=== PATIENT | female | born 1930 | race Caucasian/White ===

== ENCOUNTER 2017-05-25 13:50 | Observation (INO) ==
--- NOTE | 2017-05-25 14:23 | Emergency Department Note ---
Disposition Clinical Impression: Frail elderly, Diabetes, Dehydration, Elevated INR, Atrial fibrillation, Anemia , Diarrhea, Lactic acidosis, Abnormal liver function tests, Thrombocytopenia, Tachycardia Disposition: Admitted As Inpatient Referrals: Veronica Weldon CNP [Primary Care Provider] - Forms: ED Satisfaction Letter General Adult HPI - General Chief complaint: ED Weakness Stated complaint: Weakness Source: patient - History of Present Illness HPI Narrative: 86-year-old female reports emergency department complaining of feeling weak. She had her flu shot about 10 days ago then developed some upper respiratory symptoms and went to her primary care doctor she reports a flu swab was obtained and it was negative. They diagnosed her with a viral illness per the patient. The patient reports she had some skin surgery several days ago, she states she has been feeling weak in general. The patient has had a slight cough but no ear pain runny nose or sore throat reported. She reports she felt "hot" and thinks she may have had a fever. The patient has had no abdominal pain or vomiting but had some diarrhea a few days ago. No blood in her stool. She is anticoagulated and has a history of atrial fibrillation and CAD. There is been no ro chest pain. No leg swelling or pain. She states she takes diuretics but has no history of heart failure. She also reports she is a diabetic with chronic diabetic neuropathy. There is no history of primary lung disease or oxygen requirement. Some shortness of breath is reported. No palpitations or fast heart rate noted or reported. She has had no trouble moving her arms or legs independently. No slurred speech or falls or injuries or bleeding. Pain Scale: 0 - Related Data Home Medications Medication Instructions Recorded Confirmed Alendronate Sodium [Fosamax] 70 mg PO QWEEK 05/25/17 05/25/17 Calcitriol [Rocaltrol] 0.25 mcg PO MOWEFR 05/25/17 05/25/17 Folic Acid 1 mg PO DAILY 05/25/17 05/25/17 Furosemide [Lasix] 40 mg PO DAILY 05/25/17 05/25/17 Gabapentin [Neurontin] 100 mg PO DAILY 05/25/17 05/25/17 GlipiZIDE [Glipizide ER] 10 mg PO DAILY 05/25/17 05/25/17 Ketoconazole 2% CRM [Nizoral Cream] 1 appl TP BID 05/25/17 05/25/17 Lansoprazole [Prevacid] 30 mg PO DAILY 05/25/17 05/25/17 Levothyroxine Sodium [Levo-T] 25 mcg PO DAILY 05/25/17 05/25/17 Losartan Potassium [Cozaar] 100 mg PO DAILY 05/25/17 05/25/17 Metoprolol [Lopressor] 50 mg PO BID 05/25/17 05/25/17 Potassium Chloride [Klor-Con 10] 10 meq PO DAILY 05/25/17 05/25/17 Simvastatin [Zocor] 40 mg PO HS 05/25/17 05/25/17 Sitagliptin Phosphate [Januvia] 50 mg PO DAILY 05/25/17 05/25/17 Allergies Allergy/AdvReac Type Severity Reaction Status Date / Time allopurinol AdvReac Diarrhea Verified 05/25/17 13:55 rivaroxaban [From Xarelto] AdvReac Gastrointestinal Verified 05/25/17 13:55 Upset All systems ED: reviewed and negative except as stated. Past Medical History - Past Medical History Medical history: Reports: cancer, coronary artery disease, diabetes, hyperlipidemia, hypertension Psychiatric history: Reports: no psych history - Social History Smoking Status: Never smoker Alcohol use: Reports: none Drug use: Reports: none Physical Exam - General Limitations: no limitations General appearance: alert, in no apparent distress - Head Head exam: atraumatic, normocephalic, normal inspection - Eye Eye exam: Present: normal appearance, PERRL, EOMI. Absent: scleral icterus, conjunctival injection, miosis, mydriasis - ENT ENT exam: normal exam, normal oropharynx, mucous membranes moist - Neck Neck exam: Present: normal inspection, full ROM, trachea midline - Chest Chest inspection: Present: normal inspection, symmetric chest wall rise. Absent : tenderness - Respiratory Respiratory exam: Present: normal lung sounds bilaterally. Absent: respiratory distress, wheezes, accessory muscle use, prolonged expiratory phase - Cardiovascular Cardiovascular exam: Present: tachycardia, irregular rhythm - Abdominal Exam Abdominal exam: Present: soft, Non-Tender, normal bowel sounds. Absent: tenderness, distention, guarding, rebound, rigidity, pulsatile mass - Extremities Exam Extremities exam: Present: normal inspection, full ROM, normal capillary refill. Absent: tenderness, pedal edema, joint swelling, calf tenderness - Expanded Lower Extremity Exam Neurovascular/Tendon exam: Present: normal capillary refill. Absent: pulse deficit, motor deficit, sensory deficit, tendon deficit, extremity cold to touch , pallor - Back Exam Back exam: Present: normal inspection, full ROM. Absent: tenderness, CVA tenderness (R), CVA tenderness (L), vertebral tenderness - Neurological Exam Neurological exam: Present: alert, oriented X3, CN II-XII intact. Absent: motor sensory deficit - Psychiatric Psychiatric exam: Present: normal affect, normal mood - Skin Skin exam: Present: warm, dry, intact, normal color. Absent: rash, cyanosis, diaphoresis, erythema, pallor, mottled Course Vital Signs Temperature 98.4 F 05/25/17 13:52 Pulse Rate 112 05/25/17 13:52 Respiratory Rate 14 05/25/17 13:52 Blood Pressure 164/66 05/25/17 13:52 O2 Sat by Pulse Oximetry 98 05/25/17 13:52 Temperature 98.4 F 05/25/17 13:52 Pulse Rate 98 05/25/17 16:13 Respiratory Rate 16 05/25/17 16:13 Blood Pressure 133/91 05/25/17 16:13 O2 Sat by Pulse Oximetry 95 05/25/17 16:13 Oxygen Delivery Oxygen Delivery Room Air Medical Decision Making - [facility] Narrative Medical decision making narrative: The patient was seen by her primary care physician about 10 days ago got a flu shot, 3 days later she had upper asperse symptoms was tested for the flu which was negative per her report. The patient is been somewhat weak and feeling poorly, she is diabetic, she reports she started having some diarrhea about 2 days ago. There is no history of bloody stool. The patient is anticoagulated secondary to atrial fibrillation. The patient's laboratory studies suggest an element of dehydration she is slightly tachycardic, her lactic acid is elevated , BUN creatinine also elevated compared to previous. IV fluid was ordered. Urinalysis shows no major infection chest x-ray no acute disease. The patient is slightly anemic. Based on the patient's age, diarrhea, lactic acidosis, tachycardia, likely dehydration, in association with diabetes, I do not be appropriate to admit and observe the patient. She feels very weak and is highly agreeable. I reviewed the case with the hospitalist on-call who has accepted the patient to their care. - Lab Data Result diagrams: 05/25/17 14:30 05/25/17 14:30 Lab Results 05/25/17 05/25/17 05/25/17 Range/Units 14:30 14:30 14:30 WBC 4.9 (4.3-11.1) K/mcL RBC 3.58 L (3.82-4.97) M/mcL Hgb 10.6 L (11.5-15.4) g/dL Hct 31.7 L (35.3-44.9) % MCV 88.5 (83.0-100.0) fL MCH 29.6 (28.0-33.3) pg MCHC 33.4 (31.6-35.5) g/dL RDW 16.1 H (11.5-14.5) % Plt Count 86 L (140-400) K/mcL MPV 13.0 H (9.4-12.4) fL Immature Gran % 0.4 (0-4) % Seg Neutrophils % 69.2 % Lymphocytes % 23.9 % Monocytes % 4.7 % Eosinophils % 0.8 % Basophils % 1.0 % Neutrophils # 3.4 (1.6-8.9) K/mcL Lymphocytes # 1.2 (0.6-4.6) K/mcL Monocytes # 0.2 (0.0-1.3) K/mcL Eosinophils # 0.0 (0.0-0.6) K/mcL Basophils # 0.1 (0.0-0.2) K/mcL Nucleated RBCs/100 WBC 0.4 H (0) /100 WBC Platelet Estimate Slight Decrease L (Normal) Immature Plt Fraction 8.8 H (1.1-6.1) % PT (9.4-12.1) Seconds INR APTT (26.0-36.0) Seconds Sodium 136 (136-145) mEq/L Potassium 4.0 (3.5-4.5) mEq/L Chloride 104 (98-109) mEq/L Carbon Dioxide 21 (19-29) mEq/L BUN 34 H (7-20) mg/dL Creatinine 1.66 H (0.57-1.11) mg/dL Est GFR ( Amer) 36 L (> 60) Est GFR (Non-Af Amer) 29 L (> 60) BUN/Creatinine Ratio 20 (6-26) Glucose 226 H (70-99) mg/dL Calculated Osmolality 297 (280-300) Lactic Acid 3.5 H (0.5-2.2) mmol/L Calcium 8.2 L (8.6-10.8) mg/dL Total Bilirubin 1.6 H (0.2-1.2) mg/dL AST 68 H (5-34) Units/L ALT 51 (0-55) Units/L Alkaline Phosphatase 466 H (38-126) Units/L Troponin I (0-0.03) ng/mL C-Reactive Protein 77 H (Less than 5) mg/L Serum Total Protein 6.3 (6.0-8.3) g/dL Albumin 2.2 L (3.5-5.0) g/dL Globulin 4.1 H (2.4-3.5) g/dL Albumin/Globulin Ratio 0.5 L (1.1-2.2) Urine Color (Yellow) Urine Clarity (Clear) Urine pH (5.0-8.0) pH Units Ur Specific [place] (1.010-1.025) Urine Protein (Neg-Trace) mg/dL Urine Glucose (UA) (Normal) mg/dL Urine Ketones (Negative) mg/dL Urine Blood (Negative) Urine Nitrite (Negative) Urine Bilirubin (Negative) Urine Urobilinogen (Normal) mg/dL Ur Leukocyte Esterase (Negative) Urine Microscopic RBC (0-3) per hpf Urine Microscopic WBC (0-3) per hpf Ur Squamous Epith Cells (None-Few) per lpf Urine Bacteria (None-Few) per hpf Hyaline Casts Ur Culture Indicated? (NO) 05/25/17 05/25/17 05/25/17 Range/Units 14:30 15:04 15:51 WBC (4.3-11.1) K/mcL RBC (3.82-4.97) M/mcL Hgb (11.5-15.4) g/dL Hct (35.3-44.9) % MCV (83.0-100.0) fL MCH (28.0-33.3) pg MCHC (31.6-35.5) g/dL RDW (11.5-14.5) % Plt Count (140-400) K/mcL MPV (9.4-12.4) fL Immature Gran % (0-4) % Seg Neutrophils % % Lymphocytes % % Monocytes % % Eosinophils % % Basophils % % Neutrophils # (1.6-8.9) K/mcL Lymphocytes # (0.6-4.6) K/mcL Monocytes # (0.0-1.3) K/mcL Eosinophils # (0.0-0.6) K/mcL Basophils # (0.0-0.2) K/mcL Nucleated RBCs/100 WBC (0) /100 WBC Platelet Estimate (Normal) Immature Plt Fraction (1.1-6.1) % PT 52.0 H* (9.4-12.1) Seconds INR 4.7 H* APTT 47.2 H (26.0-36.0) Seconds Sodium (136-145) mEq/L Potassium (3.5-4.5) mEq/L Chloride (98-109) mEq/L Carbon Dioxide (19-29) mEq/L BUN (7-20) mg/dL Creatinine (0.57-1.11) mg/dL Est GFR ( Amer) (> 60) Est GFR (Non-Af Amer) (> 60) BUN/Creatinine Ratio (6-26) Glucose (70-99) mg/dL Calculated Osmolality (280-300) Lactic Acid (0.5-2.2) mmol/L Calcium (8.6-10.8) mg/dL Total Bilirubin (0.2-1.2) mg/dL AST (5-34) Units/L ALT (0-55) Units/L Alkaline Phosphatase (38-126) Units/L Troponin I 0.01 (0-0.03) ng/mL C-Reactive Protein (Less than 5) mg/L Serum Total Protein (6.0-8.3) g/dL Albumin (3.5-5.0) g/dL Globulin (2.4-3.5) g/dL Albumin/Globulin Ratio (1.1-2.2) Urine Color Dark Yellow (Yellow) Urine Clarity Cloudy A (Clear) Urine pH 6.0 (5.0-8.0) pH Units Ur Specific [place] 1.020 (1.010-1.025) Urine Protein 30 H (Neg-Trace) mg/dL Urine Glucose (UA) Normal (Normal) mg/dL Urine Ketones Negative (Negative) mg/dL Urine Blood Negative (Negative) Urine Nitrite Negative (Negative) Urine Bilirubin Small H (Negative) Urine Urobilinogen Normal (Normal) mg/dL Ur Leukocyte Esterase Negative (Negative) Urine Microscopic RBC 0-3 (0-3) per hpf Urine Microscopic WBC 3-5 H (0-3) per hpf Ur Squamous Epith Cells Many H (None-Few) per lpf Urine Bacteria Many H (None-Few) per hpf Hyaline Casts Test Not Performed Ur Culture Indicated? NO (NO)
[2017-05-25 14:42] LABS: Hemoglobin 10.6 g/dL (11.5-15.4); Immature Granulocytes % 0.4 % (0-4); Red Cell Distribution Width 16.1 % (11.5-14.5)
[2017-05-25 14:44] LABS: Basophils # 0.1 K/mcL (0.0-0.2); Eosinophils % 0.8 %; Hematocrit 31.7 % (35.3-44.9); Immature Platelets 8.8 % (1.1-6.1); Lymphocytes # 1.2 K/mcL (0.6-4.6); Lymphocytes % 23.9 %; Mean Corpuscular HGB Conc 33.4 g/dL (31.6-35.5); Mean Corpuscular Hemoglobin 29.6 pg (28.0-33.3); Mean Corpuscular Volume 88.5 fL (83.0-100.0); Monocytes # 0.2 K/mcL (0.0-1.3); Monocytes % 4.7 %; Neutrophils # 3.4 K/mcL (1.6-8.9); Nucleated Red Blood Cells 0.4 /100 WBC (0); Red Blood Count 3.58 M/mcL (3.82-4.97); Segmented Neutrophils % 69.2 %
[2017-05-25 14:55] LABS: Albumin 2.2 g/dL (3.5-5.0); Albumin/Globulin Ratio 0.5 (1.1-2.2); Bilirubin,Total 1.6 mg/dL (0.2-1.2); Calcium 8.2 mg/dL (8.6-10.8); Globulin 4.1 g/dL (2.4-3.5); Total Protein 6.3 g/dL (6.0-8.3)
[2017-05-25 15:06] LABS: Platelet Count 86 K/mcL (140-400); Platelet Estimate Slight Decrease (Normal)
[2017-05-25 15:12] LABS: Bilirubin,Urine Small (Negative); Blood,Urine Negative (Negative); Clarity,Urine Cloudy (Clear); Color,Urine Dark Yellow (Yellow); Glucose,Urine (UA) Normal (Normal); Ketones,Urine Negative (Negative); Nitrite,Urine Negative (Negative); Protein,Urine 30 mg/dL (Neg-Trace); Urobilinogen,Urine Normal (Normal)
[2017-05-25 15:56] LABS: Bacteria,Urine Many per hpf (None-Few); Leukocyte Esterase,Urine Negative (Negative); RBC,Urine 0-3 per hpf (0-3); Squamous Epithelial Cell,Urine Many per lpf (None-Few)
[2017-05-25 16:12] LABS: Activated Partial Thrombo Time 47.2 Seconds (26.0-36.0)
[2017-05-25 16:16] LABS: INR 4.7
[2017-05-25] MEDS ORDERED: 0.9 % Sodium Chloride 1,000 ML IVC ONE (16:59)
[2017-05-25] MEDS ORDERED: Dextrose Gel 15 GM PO PRN ×2 (22:06)
[2017-05-25] MEDS ORDERED: *HR* Dextrose 50 % in Water (Syg) 50 ML SYRINGE IVP PRN (22:06)
[2017-05-25] MEDS ORDERED: D5% in Water 1,000 ML IVC PRN (22:06)
[2017-05-25] MEDS ORDERED: Naloxone 0.4 MG/ML INJ IVP PRN (22:06)
[2017-05-25] MEDS ORDERED: 0.9 % Sodium Chloride 1,000 ML IVC SCH (22:15)
--- NOTE | 2017-05-25 22:42 | Internal Med History&Physical ---
<Drake Paula - Last Filed: 05/25/17 22:40> Date of Encounter: 05/25/17 Time of Encounter: 22:40 Assessment and Plan (1) Dehydration Current visit: Yes Status: Acute In the setting of recent viral illness and diarrhea. Elevated lactate 3.5 creatinine 1.66. Currently hemodynamically stable, does not appear severely dehydrated. Stop Lasix Received 1 L fluid bolus continue rehydration with 0.9% normal saline at 100 mL per hour Resume diet and encourage fluid intake recheck BMP in the morning (2) Diarrhea Current visit: Yes Status: Resolved Reports diarrhea approximately 2 days ago. Has resolved this time. Qualifiers: Diarrhea type: unspecified type Qualified Code(s): R19.7 - Diarrhea, unspecified (3) Lactic acidosis Current visit: Yes Status: Acute Likely due to dehydration. Should improve with IV fluids. We will recheck lactic acid now, patient does not appear to be septic (4) Supratherapeutic INR Current visit: Yes Status: Acute Denies any bleeding, H&H stable compared to last visit. Continue to monitor for signs of bleeding. Patient takes coumadin for h/o a-fib. Hold todays dose and restart coumadin with pharmacy to dose. PT/INR in the morning. (5) Hypothyroid Current visit: Yes Status: Acute Continues to endorse weakness and fatigue. She is not sure when she last had her thyroid checked. Recheck TSH in the morning, continue Synthroid Qualifiers: Hypothyroidism type: unspecified Qualified Code(s): E03.9 - Hypothyroidism , unspecified (6) HLD (hyperlipidemia) Current visit: Yes Status: Acute Continue statin Qualifiers: Hyperlipidemia type: unspecified Qualified Code(s): E78.5 - Hyperlipidemia , unspecified (7) HTN (hypertension) Current visit: Yes Status: Acute History of hypertension, currently hemodynamically stable. Continue BB and Jose Angel Qualifiers: Hypertension type: essential hypertension Qualified Code(s): I10 - Essential (primary) hypertension (8) Diabetes Current visit: Yes Status: Acute History of diabetes, takes oral hypoglycemic agents at home. Stop glipizide and Januvia. Start LSSIC withAC/HS Accu-Cheks. Diabetic/cardiac diet Qualifiers: Diabetes mellitus type: type 2 Diabetes mellitus complication status: without complication Diabetes mellitus residential insulin use: without residential use Qualified Code(s): E11.9 - Type 2 diabetes mellitus without complications (9) Anemia Current visit: Yes Status: Acute History of anemia, stable at baseline. Denies any bleeding recheck CBC in the morning Qualifiers: Anemia type: iron deficiency Iron deficiency anemia type: unspecified iron deficiency Qualified Code(s): D50.9 - Iron deficiency anemia, unspecified (10) DVT prophylaxis Current visit: Yes Status: Acute Heparin subcutaneous 5000 units every 12 hours Internal Medicine - H&P: HPI Chief complaint: Weakness, diarrhea 2 days and dehydration. Admitted From: Home Plans for Post Hospital Care: Home History of present illness: Ms. Andrea is a 86 year old female with a PMH of CVA, CAD, DM, HEENT, HTN. [facility] one and half week complaint of weakness. She reports that 3-4 days after receiving her flu shot she began feeling weak report subjective chills and fevers as well as nonproductive cough. At that time she saw her primary care provider or flu swab was obtained and found to be negative she was diagnosed with viral upper respiratory infection. Additionally reports diarrhea X4-6 episodes approximately 2 days ago. Currently denies any fever, chills, chest pain, diarrhea, nausea, vomiting. She had supratherapeutic at 52 and 4.7 and she denies any bleeding. LV creatinine 1.66. Past Med Surg Social Fam HX - Past Medical History Medical history: cancer, coronary artery disease, diabetes, hyperlipidemia, hypertension Psychiatric history: no psych history - Past Surgical History Surgical History: cancer surgery, coronary bypass (CABG) - Social History Smoking Status: Never smoker Smokeless Tobacco Status: No Alcohol use: none Drug use: none - Family History Mother Hx Family Cardiac Disorders: Yes Brother Hx Family Cardiac Disorders: Yes Hx Family Cancer: Yes Sister Hx Family Neurologic Disorders: Yes Internal Medicine - H&P: Meds Alendronate Sodium [Fosamax] 70 mg PO QWEEK 05/25/17 [History] Calcitriol [Rocaltrol] 0.25 mcg PO MOWEFR 05/25/17 [History] Folic Acid 1 mg PO DAILY 05/25/17 [History] Furosemide [Lasix] 40 mg PO DAILY 05/25/17 [History] Gabapentin [Neurontin] 100 mg PO DAILY 05/25/17 [History] GlipiZIDE [Glipizide ER] 10 mg PO DAILY 05/25/17 [History] Ketoconazole 2% CRM [Nizoral Cream] 1 appl TP BID 05/25/17 [History] Lansoprazole [Prevacid] 30 mg PO DAILY 05/25/17 [History] Levothyroxine Sodium [Levo-T] 25 mcg PO DAILY 05/25/17 [History] Losartan Potassium [Cozaar] 100 mg PO DAILY 05/25/17 [History] Metoprolol [Lopressor] 50 mg PO BID 05/25/17 [History] Potassium Chloride [Klor-Con 10] 10 meq PO DAILY 05/25/17 [History] Simvastatin [Zocor] 40 mg PO HS 05/25/17 [History] Sitagliptin Phosphate [Januvia] 50 mg PO DAILY 05/25/17 [History] 3 Allergy/AdvReac Type Severity Reaction Status Date / Time allopurinol AdvReac Diarrhea Verified 05/25/17 13:55 rivaroxaban [From Xarelto] AdvReac Gastrointestinal Verified 05/25/17 13:55 Upset All Systems PM: A 10-system review of systems was performed and is negative for pertinent findings except as documented above in the HPI. - Constitutional Constitutional: as per HPI, weakness, no chills, no fatigue, no fever(s), no lethargy, no weight gain, no weight loss - EENT Eyes: no change in vision, no discharge, no pain, no photophobia - Cardiovascular Cardiovascular ROS IM: no chest pain, no diaphoresis, no dyspnea, no edema, no lightheadedness, no palpitations, no syncope Additional comments: Mild shortness of breath - Respiratory Respiratory: no cough, no dyspnea, no wheezing, no excessive phlegm production - Gastrointestinal Gastrointestinal: as per HPI, diarrhea, no abdominal pain, no hematemesis, no hematochezia, no melena, no nausea, no vomiting - Genitourinary Genitourinary: as per HPI, no change in urinary stream, no dysuria, no flank pain, no hematuria - Musculoskeletal Musculoskeletal ROS IM: no numbness, no tingling - Integumentary Integumentary IM: new lesions, rash, unusual bruising (HEALING BIOPSY SITE Left Wrist) - Neurological Neurological ROS: no confusion, no convulsions, no focal weakness, no numbness, no tingling, no tremor(s) - Constitutional Vitals: Temp Pulse Resp BP Pulse Ox 98.3 F 127 16 140/72 96 05/25/17 20:01 05/25/17 20:01 05/25/17 20:01 05/25/17 20:01 05/25/17 20:01 General appearance: Present: cooperative, A&O X 3, no acute distress, answers questions appropriately - Head Head exam: Present: atraumatic, normocephalic - Eye Eye exam: Present: EOMI, PERRL, conjuntiva pink, sclera anicteric Pupils: Present: PERRL - Neck Neck exam general surgery: Present: supple, trachea midline. Absent: lymphadenopathy - Respiratory Respiratory exam: Present: CTAB. Absent: accessory muscle use, rales, respiratory distress, rhonchi, wheezes - Cardiovascular Cardiovascular exam: Present: RRR, +S1, +S2. Absent: diastolic murmur, gallop, rubs, systolic murmur - GI/Abdominal GI/Abdominal exam: Present: normal bowel sounds, soft, no peritoneal signs. Absent: distended, tenderness - Extremities Exam Extremities exam: Present: warm, radial pulses palpable and symmetrical. Absent : calf tenderness, cyanotic, pedal edema - Neurological Exam Neurological exam: Present: alert, CN II-XII intact, oriented X3, no focal deficits. Absent: pronater drift, facial droop, speech deficit - Skin Skin exam: Present: dry, intact Internal Med - H&P Results - Labs CBC & Chem 7: 05/25/17 14:30 05/25/17 14:30 - Diagnostic Studies Chest x-ray Status: image reviewed by me Additional comments: No acute pulmonary process <Mohit Paul - Last Filed: 05/26/17 04:20> Date of Encounter: 05/26/17 Internal Medicine - H&P: HPI History of present illness: Ms. Andrea is a 86 year old female All Systems PM: A 10-system review of systems was performed and is negative for pertinent findings except as documented above in the HPI. - Constitutional Vitals: Temp Pulse Resp BP Pulse Ox 98.9 F 102 20 132/65 97 05/26/17 03:36 05/26/17 03:36 05/26/17 03:36 05/26/17 03:36 05/26/17 03:36 Internal Med - H&P Results - Labs CBC & Chem 7: 05/25/17 14:30 05/25/17 14:30 - Attending Attestation I saw and examined the patient independently, I have discussed with ACADEMIC GUIDANCE SPECIALIST Mr Danielle regarding the management plan. Agree with the documentation. Patient presented with diarrhea. She was given hydration in ER. When I saw patient, she complained of mild shortness of breath. Will hold IV fluid considering patient has A. fib. We will check GI panel.
[2017-05-25] MEDS: Insulin LISPRO 300 UNITS/3 ML VIAL SQ SCH (23:54)
[2017-05-26] MEDS: Levothyroxine 25 MCG TABLET PO SCH (05:52)
[2017-05-26] MEDS ORDERED: *HR* Heparin 5,000 UNIT/ML VIAL SQ SCH (06:00)
[2017-05-26 06:46] LABS: Red Cell Distribution Width 16.3 % (11.5-14.5)
[2017-05-26 06:47] LABS: Hemoglobin 9.6 g/dL (11.5-15.4); Immature Platelets 6.6 % (1.1-6.1); Mean Corpuscular HGB Conc 33.1 g/dL (31.6-35.5); Mean Corpuscular Hemoglobin 29.4 pg (28.0-33.3); Mean Corpuscular Volume 88.7 fL (83.0-100.0); Mean Platelet Volume 12.1 fL (9.4-12.4); Monocytes # 0.3 K/mcL (0.0-1.3); Red Blood Count 3.27 M/mcL (3.82-4.97)
[2017-05-26 06:49] LABS: INR 4.2; Platelet Count 84 K/mcL (140-400)
[2017-05-26 07:02] LABS: Prothrombin Time 47.2 Seconds (9.4-12.1)
[2017-05-26 07:04] LABS: Calcium 7.5 mg/dL (8.6-10.8); Potassium 4.3 mEq/L (3.5-4.5)
[2017-05-26 07:11] LABS: Basophils # 0.2 K/mcL (0.0-0.2); Eosinophils # 0.1 K/mcL (0.0-0.6); Lymphocytes # 0.6 K/mcL (0.6-4.6); Neutrophils # 3.7 K/mcL (1.6-8.9)
[2017-05-26 07:12] LABS: Platelet Estimate Decreased (Normal)
[2017-05-26 07:20] LABS: Thyroid Stimulating Hormone 1.66 mcIU/mL (0.350-4.840)
[2017-05-26] MEDS: Gabapentin 100 MG CAPSULE PO SCH (08:21)
[2017-05-26] MEDS: Folic Acid 1 MG TABLET PO SCH (08:21)
[2017-05-26] MEDS: Insulin LISPRO 300 UNITS/3 ML VIAL SQ SCH ×4 (08:26→21:04)
--- NOTE | 2017-05-26 14:20 | Internal Med Progress Note ---
Date of Encounter: 05/26/17 Time of Encounter: 10:45 - Assessment and plan (1) Dehydration Current Visit: Yes Status: Acute Assessment and plan: likely from volume loss was due to diarrhea. Improved and lactic acid is normal. (2) Chronic kidney disease, stage III (moderate) Current Visit: Yes Status: Chronic Assessment and plan: creatinine remains at patient's baseline. (3) Anemia Current Visit: Yes Status: Chronic Assessment and plan: Hemoglobin 9.6. Likely dilutional decrease.Will monitor blood counts. Qualifiers: Anemia type: due to chronic kidney disease Chronic kidney disease stage: stage 3 (moderate) Qualified Code(s): N18.3 - Chronic kidney disease, stage 3 (moderate); D63.1 - Anemia in chronic kidney disease; D63.1 - Anemia in chronic kidney disease (4) Diabetes Current Visit: Yes Status: Chronic Assessment and plan: Continue current insulin regimen. Diabetic diet. Monitor blood sugars. Qualifiers: Diabetes mellitus type: type 2 Diabetes mellitus complication status: without complication Diabetes mellitus detention insulin use: without manager intermediate use Qualified Code(s): E11.9 - Type 2 diabetes mellitus without complications (5) Diarrhea Current Visit: Yes Status: Resolved Assessment and plan: this has now resolved. Qualifiers: Diarrhea type: unspecified type Qualified Code(s): R19.7 - Diarrhea, unspecified (6) HLD (hyperlipidemia) Current Visit: Yes Status: Acute Assessment and plan: Continue Zocor Qualifiers: Hyperlipidemia type: mixed hyperlipidemia Qualified Code(s): E78.2 - Mixed hyperlipidemia (7) HTN (hypertension) Current Visit: Yes Status: Chronic Assessment and plan: blood pressure is well controlled Qualifiers: Hypertension type: essential hypertension Qualified Code(s): I10 - Essential (primary) hypertension (8) Hypothyroid Current Visit: Yes Status: Chronic Assessment and plan: continue levothyroxine Qualifiers: Hypothyroidism type: unspecified Qualified Code(s): E03.9 - Hypothyroidism , unspecified (9) Lactic acidosis Current Visit: Yes Status: Resolved (10) Supratherapeutic INR Current Visit: Yes Status: Acute Assessment and plan: INR 4.2 today. Continue holding Coumadin per pharmacy dosing. (11) Atrial fibrillation Current Visit: Yes Status: Chronic Assessment and plan: Heart rate is better controlled at this time. Continue home medications. Anticoagulation with Coumadin. Qualifiers: Atrial fibrillation type: paroxysmal Qualified Code(s): I48.0 - Paroxysmal atrial fibrillation - Subjective Interval history: patient is awake and alert. Lying in bed. Appears comfortable. She has not had any episodes of diarrhea today. No nausea or vomiting either.tolerated breakfast well. - Constitutional Vitals: Temp Pulse Resp BP Pulse Ox 98.7 F 90 18 118/75 95 05/26/17 12:10 05/26/17 12:10 05/26/17 12:10 05/26/17 12:10 05/26/17 12:10 General appearance: Present: cooperative, A&O X 3, no acute distress, answers questions appropriately - Respiratory Respiratory exam: Present: CTAB. Absent: accessory muscle use, rales, rhonchi, wheezes - Cardiovascular Cardiovascular exam: Present: RRR, +S1, +S2. Absent: diastolic murmur, gallop, rubs, systolic murmur - GI/Abdominal GI/Abdominal exam: Present: normal bowel sounds, soft, no peritoneal signs. Absent: distended, tenderness - Extremities Exam Extremities exam: Present: warm, radial pulses palpable and symmetrical. Absent : calf tenderness, cyanotic, pedal edema Internal Medicine: Result - Labs CBC & Chem 7: 05/26/17 06:12 05/26/17 06:12 Labs: Short CBC 05/26/17 Range/Units 06:12 WBC 4.8 (4.3-11.1) K/mcL Hgb 9.6 L (11.5-15.4) g/dL Hct 29.0 L (35.3-44.9) % Plt Count 84 L (140-400) K/mcL Neutrophils # 3.7 (1.6-8.9) K/mcL BMP 05/26/17 06:12 Sodium 139 Potassium 4.3 Chloride 110 H Carbon Dioxide 23 BUN 26 H Creatinine 1.27 H Glucose 123 H Calcium 7.5 L - ABG Interpretation ABG results: PT/INR, D-dimer PT 47.2 Seconds (9.4-12.1) H* 05/26/17 06:12 Consult Discharge Plan - Plan Referrals: Veronica Weldon, [employer] INSPECTOR [Primary Care Provider] -
[2017-05-26] MEDS ORDERED: Warfarin perPT PO PRN (18:00)
[2017-05-26] MEDS ORDERED: Ipratropium/Albuterol Neb 3 ML IH ONE (21:55)
[2017-05-26] MEDS: Bacitracin OINT PKT TP SCH (23:20)
[2017-05-27] MEDS: Levothyroxine 25 MCG TABLET PO SCH (05:57)
[2017-05-27 07:43] LABS: INR 2.7; Prothrombin Time 30.1 Seconds (9.4-12.1)
[2017-05-27] MEDS: Insulin LISPRO 300 UNITS/3 ML VIAL SQ SCH ×2 (09:36→18:18)
[2017-05-27] MEDS: Gabapentin 100 MG CAPSULE PO SCH ×2 (09:39→20:50)
[2017-05-27] MEDS: Folic Acid 1 MG TABLET PO SCH (09:40)
[2017-05-27] MEDS: Bacitracin OINT PKT TP SCH ×3 (09:40→20:42)
[2017-05-27] MEDS: Metoprolol XL (24 HR) Succ 50 MG TAB.ER.24H PO SCH (11:30)
--- NOTE | 2017-05-27 12:13 | Discharge Summary ---
Date of Encounter: 05/27/17 Time of Encounter: 12:11 - Discharge Diagnosis (1) Dehydration Priority: Primary Status: Acute (2) Atrial fibrillation Priority: Secondary Status: Chronic Qualifiers: Atrial fibrillation type: paroxysmal Qualified Code(s): I48.0 - Paroxysmal atrial fibrillation (3) Chronic kidney disease, stage III (moderate) Priority: Secondary Status: Chronic (4) Anemia Priority: Secondary Status: Chronic Qualifiers: Anemia type: due to chronic kidney disease Chronic kidney disease stage: stage 3 (moderate) Qualified Code(s): N18.3 - Chronic kidney disease, stage 3 (moderate); D63.1 - Anemia in chronic kidney disease; D63.1 - Anemia in chronic kidney disease (5) Diabetes Priority: Secondary Status: Chronic Qualifiers: Diabetes mellitus type: type 2 Diabetes mellitus complication status: without complication Diabetes mellitus correction insulin use: without watermaster use Qualified Code(s): E11.9 - Type 2 diabetes mellitus without complications (6) Diarrhea Priority: Secondary Status: Resolved Qualifiers: Diarrhea type: unspecified type Qualified Code(s): R19.7 - Diarrhea, unspecified (7) HLD (hyperlipidemia) Priority: Secondary Status: Acute Qualifiers: Hyperlipidemia type: mixed hyperlipidemia Qualified Code(s): E78.2 - Mixed hyperlipidemia (8) HTN (hypertension) Priority: Secondary Status: Chronic Qualifiers: Hypertension type: essential hypertension Qualified Code(s): I10 - Essential (primary) hypertension (9) Hypothyroid Priority: Secondary Status: Chronic Qualifiers: Hypothyroidism type: unspecified Qualified Code(s): E03.9 - Hypothyroidism , unspecified (10) Lactic acidosis Priority: Secondary Status: Resolved (11) Supratherapeutic INR Priority: Secondary Status: Acute - Discharge Medications Prescriptions: Albuterol Sulfate [Albuterol Inhaler] 2 puff IH Q4HR PRN #1 inh PRN Reason: Shortness Of Breath Metoprolol XL (24 HR) Succ [Toprol Xl] 150 mg PO DAILY #90 tab.er.24h Home Medications: Alendronate Sodium [Fosamax] 70 mg PO QWEEK 05/25/17 [History] Calcitriol [Rocaltrol] 0.25 mcg PO MOWEFR 05/25/17 [History] Folic Acid 1 mg PO DAILY 05/25/17 [History] Furosemide [Lasix] 40 mg PO DAILY 05/25/17 [History] Gabapentin [Neurontin] 100 mg PO DAILY 05/25/17 [History] GlipiZIDE [Glipizide ER] 10 mg PO DAILY 05/25/17 [History] Ketoconazole 2% CRM [Nizoral Cream] 1 appl TP BID 05/25/17 [History] Lansoprazole [Prevacid] 30 mg PO DAILY 05/25/17 [History] Levothyroxine Sodium [Levo-T] 25 mcg PO DAILY 05/25/17 [History] Losartan Potassium [Cozaar] 100 mg PO DAILY 05/25/17 [History] Potassium Chloride [Klor-Con 10] 10 meq PO DAILY 05/25/17 [History] Simvastatin [Zocor] 40 mg PO HS 05/25/17 [History] Sitagliptin Phosphate [Januvia] 50 mg PO DAILY 05/25/17 [History] Albuterol Sulfate [Albuterol Inhaler] 2 puff IH Q4HR PRN #1 inh 05/27/17 [Rx] Metoprolol XL (24 HR) Succ [Toprol Xl] 150 mg PO DAILY #90 tab.er.24h 05/27/17 [ Rx] Allergies/Adverse Reactions: 3 Allergy/AdvReac Type Severity Reaction Status Date / Time allopurinol AdvReac Diarrhea Verified 05/25/17 13:55 rivaroxaban [From Xarelto] AdvReac Gastrointestinal Verified 05/25/17 13:55 Upset Procedures/tests Complete & Pending: Procedures Performed prior 72 hours Category Date Time Status ECG 12 lead ECG [ECG] Routine Y 05/25/17 23:25 Completed Date of admission: 05/25/17 17:59 Primary care physician: Veronica Weldon CNP Consults: 05/25/17 20:25 Consult to Nutrition [CONS] Routine Comment: Consulting Provider: NUTRITION Reason for Dietary Consult: MST Score Discharging clinician: Raheel Lala Anticipated date of discharge: 05/27/17 - Patient Status Disposition: Home, Self-Care Condition: Good Functional capacity at discharge: uses cane/walker Overall status at discharge: patient is progressing back to baseline - Discharge Instructions Instructions: Diabetes Mellitus Type 2 in Adults (DC), Atrial Fibrillation (DC) Follow Up With: Veronica Weldon CNP [Primary Care Provider] - (in 1-2 weeks) Fer Still DO [Partnered Physician] - (in 1 week) - Diet and Activity Activity: increase activity as tolerated Diet: diabetic diet, low fat, low cholesterol, low salt diet Hospital course: Ms. Andrea is a 86 year old female - Time Spent with Patient Total time spent providing and/or coordinating discharge services: Greater than 30 minutes (35 min) - Constitutional Vitals: Temp Pulse Resp BP Pulse Ox 98.2 F 90 18 113/71 95 05/27/17 11:31 05/27/17 11:31 05/27/17 11:31 05/27/17 11:31 05/27/17 11:31 General appearance: Present: cooperative, A&O X 3, no acute distress, answers questions appropriately - Neck Neck exam general surgery: Present: supple, trachea midline. Absent: lymphadenopathy - Respiratory Respiratory exam: Present: CTAB. Absent: accessory muscle use, rales, rhonchi, wheezes - Cardiovascular Cardiovascular exam: Present: irregular rhythm, +S1, +S2. Absent: diastolic murmur, gallop, rubs, systolic murmur - GI/Abdominal GI/Abdominal exam: Present: normal bowel sounds, soft, no peritoneal signs. Absent: distended, tenderness - Extremities Exam Extremities exam: Present: warm, radial pulses palpable and symmetrical. Absent : calf tenderness, cyanotic, pedal edema
[2017-05-27 12:53] LABS: Eosinophils # 0.1 K/mcL (0.0-0.6); Hematocrit 34.2 % (35.3-44.9); Mean Corpuscular HGB Conc 32.7 g/dL (31.6-35.5); Mean Corpuscular Hemoglobin 29.9 pg (28.0-33.3); Mean Corpuscular Volume 91.2 fL (83.0-100.0); Mean Platelet Volume 13.1 fL (9.4-12.4); Platelet Count 113 K/mcL (140-400); Red Blood Count 3.75 M/mcL (3.82-4.97)
[2017-05-27 13:09] LABS: Calcium 7.7 mg/dL (8.6-10.8); Potassium 4.7 mEq/L (3.5-4.5)
[2017-05-27 13:15] LABS: Hemoglobin 11.2 g/dL (11.5-15.4)
[2017-05-27 13:21] LABS: Lymphocytes # 1.6 K/mcL (0.6-4.6); Neutrophils # 4.9 K/mcL (1.6-8.9); Platelet Estimate Slight Decrease (Normal)
[2017-05-27] MEDS ORDERED: Insulin LISPRO 300 UNITS/3 ML VIAL SQ SCH (13:40)
--- NOTE | 2017-05-27 13:44 | Internal Med Progress Note ---
Date of Encounter: 05/27/17 Time of Encounter: 13:42 - Assessment and plan (1) Acute kidney injury Current Visit: Yes Status: Acute Assessment and plan: Creatinine worse today at 2.04. Will hold losartan. Continue to follow renal function closely. Gentle hydration for now. (2) Atrial fibrillation Current Visit: Yes Status: Chronic Assessment and plan: Controlled at rest but patient having rapid ventricular response with ambulation. We will increase metoprolol dosage. Change from Lopressor to Toprol-XL 150 mg by mouth daily. Monitor heart rate. On anticoagulation with Coumadin. INR is therapeutic Qualifiers: Atrial fibrillation type: paroxysmal Qualified Code(s): I48.0 - Paroxysmal atrial fibrillation (3) Dehydration Current Visit: Yes Status: Resolved (4) Chronic kidney disease, stage III (moderate) Current Visit: Yes Status: Chronic Assessment and plan: With acute worsening. Will get renal ultrasound. Check PTH. (5) Anemia Current Visit: Yes Status: Chronic Assessment and plan: Hemoglobin 11 today. Qualifiers: Anemia type: due to chronic kidney disease Chronic kidney disease stage: stage 3 (moderate) Qualified Code(s): N18.3 - Chronic kidney disease, stage 3 (moderate); D63.1 - Anemia in chronic kidney disease; D63.1 - Anemia in chronic kidney disease (6) Diabetes Current Visit: Yes Status: Chronic Assessment and plan: Uncontrolled. Will place patient on long-acting insulin and increase sliding scale coverage. Continue diabetic diet. Qualifiers: Diabetes mellitus type: type 2 Diabetes mellitus complication status: without complication Diabetes mellitus laborer marine terminal insulin use: without laborer marine terminal use Qualified Code(s): E11.9 - Type 2 diabetes mellitus without complications (7) Diarrhea Current Visit: Yes Status: Resolved Assessment and plan: No new episodes of diarrhea reported. No GI panel sent as patient is not having diarrhea at this time. Qualifiers: Diarrhea type: unspecified type Qualified Code(s): R19.7 - Diarrhea, unspecified (8) HLD (hyperlipidemia) Current Visit: Yes Status: Chronic Assessment and plan: Continue Zocor Qualifiers: Hyperlipidemia type: mixed hyperlipidemia Qualified Code(s): E78.2 - Mixed hyperlipidemia (9) HTN (hypertension) Current Visit: Yes Status: Chronic Assessment and plan: Well-controlled Qualifiers: Hypertension type: essential hypertension Qualified Code(s): I10 - Essential (primary) hypertension (10) Hypothyroid Current Visit: Yes Status: Chronic Assessment and plan: Continue levothyroxine Qualifiers: Hypothyroidism type: unspecified Qualified Code(s): E03.9 - Hypothyroidism , unspecified (11) Lactic acidosis Current Visit: Yes Status: Resolved (12) Supratherapeutic INR Current Visit: Yes Status: Resolved Assessment and plan: INR is now therapeutic. Continue Coumadin - Subjective Interval history: Patient is doing well overall. She did have an episode of shortness of breath last night which was treated with bronchodilators. Since then she has been fairly asymptomatic. No chest pain. No nausea or vomiting. No new episodes of diarrhea. No fever or chills overnight. - Constitutional Vitals: Temp Pulse Resp BP Pulse Ox 98.2 F 90 16 105/63 96 05/27/17 11:31 05/27/17 12:56 05/27/17 12:56 05/27/17 12:56 05/27/17 12:56 General appearance: Present: cooperative, A&O X 3, no acute distress, answers questions appropriately - Neck Neck exam general surgery: Present: supple, trachea midline. Absent: lymphadenopathy - Respiratory Respiratory exam: Present: CTAB. Absent: accessory muscle use, rales, rhonchi, wheezes - Cardiovascular Cardiovascular exam: Present: irregular rhythm, +S1, +S2. Absent: diastolic murmur, gallop, rubs, systolic murmur - GI/Abdominal GI/Abdominal exam: Present: normal bowel sounds, soft, no peritoneal signs. Absent: distended, tenderness - Extremities Exam Extremities exam: Present: warm, radial pulses palpable and symmetrical. Absent : calf tenderness, cyanotic, pedal edema - Neurological Exam Neurological exam: Present: alert, oriented X3, no focal deficits. Absent: facial droop, speech deficit - Skin Skin exam: Present: dry, intact Internal Medicine: Result - Labs CBC & Chem 7: 05/27/17 12:31 05/27/17 12:31 Labs: Short CBC 05/27/17 Range/Units 12:31 WBC 6.6 (4.3-11.1) K/mcL Hgb 11.2 L D (11.5-15.4) g/dL Hct 34.2 L (35.3-44.9) % Plt Count 113 L (140-400) K/mcL Neutrophils # 4.9 (1.6-8.9) K/mcL BMP 05/27/17 12:31 Sodium 135 L Potassium 4.7 H Chloride 107 Carbon Dioxide 21 BUN 32 H Creatinine 2.09 H D Glucose 216 H Calcium 7.7 L Cardiac Enzymes 05/27/17 Range/Units 12:31 Troponin I 0.01 (0-0.03) ng/mL - ABG Interpretation ABG results: PT/INR, D-dimer PT 30.1 Seconds (9.4-12.1) H 05/27/17 06:04 Consult Discharge Plan - Plan Instructions: Atrial Fibrillation (DC), Diabetes Mellitus Type 2 in Adults (DC) Referrals: Veronica Weldon, [employer] [Primary Care Provider] - (in 1-2 weeks) Fer Still DO [Partnered Physician] - (in 1 week) Prescriptions: Albuterol Sulfate [Albuterol Inhaler] 2 puff IH Q4HR PRN #1 inh PRN Reason: Shortness Of Breath Metoprolol XL (24 HR) Succ [Toprol Xl] 150 mg PO DAILY #90 tab.er.24h
[2017-05-27] MEDS: 0.9 % Sodium Chloride 500 ML IVC SCH ×2 (14:12→20:54)
[2017-05-27] MEDS: Insulin DETEMIR 100 UNIT/ML X5UNITS SQ SCH (14:12)
--- NOTE | 2017-05-27 17:45 | Electrocardiograph Report ---
[address] [address] Test Date: 2017-05-25 Pat Name: Cindy Andrea Department: 103 Room: 2A Gender: F Assistance Coordinator: EKP : 1930 Requested By: Shiraz Truong Order Number: [id number] Reading MD: Carlin Alvarez MD Measurements Intervals [place] Rate: 96 P: AR: 0 QRS: -57 QRSD: 113 T: 40 QT: 372 QTc: 425 Interpretive Statements ATRIAL FIBRILLATION INDETERMINATE AXIS Poor R wave progression Electronically Signed On 05-27-2017 17:43:58 EDT by Carlin Alvarez MD
[2017-05-27] MEDS ORDERED: *HR* Warfarin 2.5 MG TABLET PO ONE (18:00)
[2017-05-28] MEDS: 0.9 % Sodium Chloride 500 ML IVC SCH (02:30)
[2017-05-28 04:12] LABS: Basophils # 0.1 K/mcL (0.0-0.2); Eosinophils # 0.1 K/mcL (0.0-0.6); Eosinophils % 1.6 %; Hematocrit 34.9 % (35.3-44.9); Hemoglobin 11.6 g/dL (11.5-15.4); Immature Granulocytes % 0.5 % (0-4); Lymphocytes # 2.3 K/mcL (0.6-4.6); Lymphocytes % 26.8 %; Mean Corpuscular HGB Conc 33.2 g/dL (31.6-35.5); Mean Corpuscular Hemoglobin 30.2 pg (28.0-33.3); Mean Corpuscular Volume 90.9 fL (83.0-100.0); Monocytes # 0.5 K/mcL (0.0-1.3); Monocytes % 6.2 %; Platelet Count 123 K/mcL (140-400); Red Blood Count 3.84 M/mcL (3.82-4.97); Red Cell Distribution Width 17.2 % (11.5-14.5); Segmented Neutrophils % 63.9 %
[2017-05-28 04:17] LABS: INR 2.4; Prothrombin Time 26.7 Seconds (9.4-12.1)
[2017-05-28 04:29] LABS: Neutrophils # 5.6 K/mcL (1.6-8.9); Platelet Estimate Slight Decrease (Normal)
[2017-05-28 04:30] LABS: Calcium 7.7 mg/dL (8.6-10.8); Potassium 4.4 mEq/L (3.5-4.5)
[2017-05-28 04:33] LABS: Reactive Lymphocytes Present (Not Present)
[2017-05-28 04:34] LABS: Anisocytosis 1+ (Not Present)
[2017-05-28] MEDS: Levothyroxine 25 MCG TABLET PO SCH (05:29)
--- NOTE | 2017-05-28 06:13 | Electrocardiograph Report ---
[address] [address] Test Date: 2017-05-25 Pat Name: Cindy Andrea Department: 112 Room: 2A32 Gender: F Business Center Representative: : 1930 Requested By: Raheel Lala Order Number: [id number] Reading MD: Carlin Alvarez MD Measurements Intervals [place] Rate: 112 P: [place]: 0 QRS: 170 QRSD: 115 T: 22 QT: 364 QTc: 430 Interpretive Statements ATRIAL FIBRILLATION WITH RAPID VENTRICULAR RESPONSE MARKED RIGHT AXIS DEVIATION LOW QRS VOLTAGE IN PRECORDIAL LEADS Poor R wave progression Electronically Signed On 05-28-2017 6:11:20 EDT by Carlin Alvarez MD
[2017-05-28] MEDS: Insulin LISPRO 300 UNITS/3 ML VIAL SQ SCH ×2 (07:35→11:20)
[2017-05-28] MEDS: Bacitracin OINT PKT TP SCH (08:32)
[2017-05-28] MEDS: Metoprolol XL (24 HR) Succ 50 MG TAB.ER.24H PO SCH (08:32)
[2017-05-28] MEDS: Insulin DETEMIR 100 UNIT/ML X5UNITS SQ SCH (08:32)
[2017-05-28] MEDS: Folic Acid 1 MG TABLET PO SCH (08:32)
--- NOTE | 2017-05-28 11:03 | Discharge Summary ---
Date of Encounter: 05/28/17 Time of Encounter: 08:45 - Discharge Diagnosis (1) Dehydration Priority: Primary Status: Resolved (2) Acute kidney injury Priority: Secondary Status: Resolved (3) Atrial fibrillation Priority: Secondary Status: Chronic Qualifiers: Atrial fibrillation type: paroxysmal Qualified Code(s): I48.0 - Paroxysmal atrial fibrillation (4) Chronic kidney disease, stage III (moderate) Priority: Secondary Status: Chronic (5) Anemia Priority: Secondary Status: Chronic Qualifiers: Anemia type: due to chronic kidney disease Chronic kidney disease stage: stage 3 (moderate) Qualified Code(s): N18.3 - Chronic kidney disease, stage 3 (moderate); D63.1 - Anemia in chronic kidney disease; D63.1 - Anemia in chronic kidney disease (6) Diabetes Priority: Secondary Status: Chronic Qualifiers: Diabetes mellitus type: type 2 Diabetes mellitus complication status: without complication Diabetes mellitus intermediate frame tender insulin use: without usp use Qualified Code(s): E11.9 - Type 2 diabetes mellitus without complications (7) Diarrhea Priority: Secondary Status: Resolved Qualifiers: Diarrhea type: unspecified type Qualified Code(s): R19.7 - Diarrhea, unspecified (8) HLD (hyperlipidemia) Priority: Secondary Status: Chronic Qualifiers: Hyperlipidemia type: mixed hyperlipidemia Qualified Code(s): E78.2 - Mixed hyperlipidemia (9) HTN (hypertension) Priority: Secondary Status: Chronic Qualifiers: Hypertension type: essential hypertension Qualified Code(s): I10 - Essential (primary) hypertension (10) Hypothyroid Priority: Secondary Status: Chronic Qualifiers: Hypothyroidism type: unspecified Qualified Code(s): E03.9 - Hypothyroidism , unspecified (11) Lactic acidosis Priority: Secondary Status: Resolved (12) Supratherapeutic INR Priority: Secondary Status: Resolved - Discharge Medications Prescriptions: Albuterol Sulfate [Albuterol Inhaler] 2 puff IH Q4HR PRN #1 inh PRN Reason: Shortness Of Breath Metoprolol XL (24 HR) Succ [Toprol Xl] 150 mg PO DAILY #90 tab.er.24h Warfarin [Coumadin] 2.5 mg PO 1800 #30 tablet Home Medications: Alendronate Sodium [Fosamax] 70 mg PO QWEEK 05/25/17 [History] Calcitriol [Rocaltrol] 0.25 mcg PO MOWEFR 05/25/17 [History] Folic Acid 1 mg PO DAILY 05/25/17 [History] Furosemide [Lasix] 40 mg PO DAILY 05/25/17 [History] Gabapentin [Neurontin] 100 mg PO DAILY 05/25/17 [History] GlipiZIDE [Glipizide ER] 10 mg PO DAILY 05/25/17 [History] Ketoconazole 2% CRM [Nizoral Cream] 1 appl TP BID 05/25/17 [History] Lansoprazole [Prevacid] 30 mg PO DAILY 05/25/17 [History] Levothyroxine Sodium [Levo-T] 25 mcg PO DAILY 05/25/17 [History] Losartan Potassium [Cozaar] 100 mg PO DAILY 05/25/17 [History] Potassium Chloride [Klor-Con 10] 10 meq PO DAILY 05/25/17 [History] Simvastatin [Zocor] 40 mg PO HS 05/25/17 [History] Sitagliptin Phosphate [Januvia] 50 mg PO DAILY 05/25/17 [History] Albuterol Sulfate [Albuterol Inhaler] 2 puff IH Q4HR PRN #1 inh 05/27/17 [Rx] Metoprolol XL (24 HR) Succ [Toprol Xl] 150 mg PO DAILY #90 tab.er.24h 05/27/17 [ Rx] Warfarin [Coumadin] 2.5 mg PO 1800 #30 tablet 05/28/17 [Rx] Allergies/Adverse Reactions: 3 Allergy/AdvReac Type Severity Reaction Status Date / Time allopurinol AdvReac Diarrhea Verified 05/25/17 13:55 rivaroxaban [From Xarelto] AdvReac Gastrointestinal Verified 05/25/17 13:55 Upset Procedures/tests Complete & Pending: Procedures Performed prior 72 hours Category Date Time Status ECG 12 lead ECG [ECG] Routine Y 05/25/17 23:25 Completed Date of admission: 05/25/17 17:59 Primary care physician: Veronica Weldon CNP Consults: 05/25/17 20:25 Consult to Nutrition [CONS] Routine Comment: Consulting Provider: NUTRITION Reason for Dietary Consult: MST Score 05/28/17 09:29 OT [Consult to Occupational Therapy] [CONS] Routine Comment: Evaluate, develop and implement POC Reason for Consult: Home safety PT [Consult to Physical Therapy] [CONS] Routine Comment: Evaluate, develop and implement POC Reason for Consult: Home safety Discharging clinician: Raheel Lala Anticipated date of discharge: 05/28/17 - Patient Status Disposition: Home, Self-Care Condition: Good Functional capacity at discharge: independent ambulation Overall status at discharge: patient is progressing back to baseline - Discharge Instructions Instructions: Metoprolol (By mouth), Albuterol (By breathing), Atrial Fibrillation (DC), Diabetes Mellitus Type 2 in Adults (DC) Follow Up With: Veronica Weldon CNP [Primary Care Provider] - 06/04/17 1:00 pm () Fer Still DO [Partnered Physician] - (office will call you with an appointment date and time) - Diet and Activity Activity: as per physical therapy, increase activity as tolerated Diet: diabetic diet, low fat, low cholesterol, low salt diet Hospital course: Ms. Andrea is a 86 year old female patient with history of CVA, atrial fibrillation, coronary artery disease, diabetes mellitus, hypertension presented to the ER with complaints of generalized weakness. Patient had recently been diagnosed with a viral upper respiratory tract infection. She was also having episodes of diarrhea prior to presentation. Blood work in the ER showed that she had a supratherapeutic INR of 4.7 on the she did not have any active bleeding. She does have a history of chronic kidney disease with creatinine ranging between 1.4-1.6 at baseline. She was hospitalized and treated with gentle hydration. She improved clinically and has been slowly getting better. On presentation she was in A. fib and developed rapid ventricular response overnight. Her metoprolol dosage has been increased and her heart rate has been better controlled since then. She remains in A. fib. She denies any chest pain at this time. She was evaluated for home oxygen supplementation but did not qualify for home O2. She does get short of breath after ambulating for 5 minutes all of her oxygen levels remained greater than 90 %. She is clinically stable for discharge home. She may resume taking her Lasix from tomorrow. She has not had any further episodes of diarrhea. Her INR is now therapeutic. And she can resume taking Coumadin. 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 She did have episodes of shortness of breath which was relieved with albuterol nebulizer. As such I am prescribing her an albuterol inhaler to go home. - Time Spent with Patient Total time spent providing and/or coordinating discharge services: Less than 30 minutes (25 min) - Constitutional Vitals: Temp Pulse Resp BP Pulse Ox 97.3 F L 95 18 114/66 98 05/28/17 06:40 05/28/17 06:40 05/28/17 06:40 05/28/17 06:40 05/28/17 09:58 General appearance: Present: cooperative, A&O X 3, no acute distress, answers questions appropriately - Neck Neck exam general surgery: Present: supple, trachea midline. Absent: lymphadenopathy - Respiratory Respiratory exam: Present: CTAB. Absent: accessory muscle use, rales, rhonchi, wheezes - Cardiovascular Cardiovascular exam: Present: irregular rhythm, +S1, +S2. Absent: diastolic murmur, gallop, rubs, systolic murmur - GI/Abdominal GI/Abdominal exam: Present: normal bowel sounds, soft, no peritoneal signs. Absent: distended, tenderness - Extremities Exam Extremities exam: Present: warm, radial pulses palpable and symmetrical. Absent : calf tenderness, cyanotic, pedal edema - Neurological Exam Neurological exam: Present: alert, CN II-XII intact, oriented X3, no focal deficits. Absent: facial droop, speech deficit
[2017-05-28 11:04] VITALS: BP 109/65
--- NOTE | 2017-05-28 11:08 | Physician Discharge Referral ---
Home Health/Hosp Referral Info Transfer to: Home Health Provider in Charge Post Discharge: PCP - Diagnosis (1) Dehydration Priority: Primary Status: Resolved (2) Acute kidney injury Priority: Secondary Status: Resolved (3) Atrial fibrillation Priority: Secondary Status: Chronic (4) Chronic kidney disease, stage III (moderate) Priority: Secondary Status: Chronic (5) Anemia Priority: Secondary Status: Chronic (6) Diabetes Priority: Secondary Status: Chronic (7) Diarrhea Priority: Secondary Status: Resolved (8) HLD (hyperlipidemia) Priority: Secondary Status: Chronic (9) HTN (hypertension) Priority: Secondary Status: Chronic (10) Hypothyroid Priority: Secondary Status: Chronic (11) Lactic acidosis Priority: Secondary Status: Resolved (12) Supratherapeutic INR Priority: Secondary Status: Resolved - Respiratory Orders Smoking Cessation: Smoking cessation has been advised. For more information, call the [place] Tobacco Quit Line at 0-707-UODZ-NOW. - Diet/Nutrition Diet/Nutrition Orders: Cardiac, No Concentrated Sweets (Diabetic) - Activity Activity Orders: Walker - Services Needed Following services are medically necessary services: Physical Therapy, Occupational Therapy - Transfer Medications Prescriptions: Albuterol Sulfate [Albuterol Inhaler] 2 puff IH Q4HR PRN #1 inh PRN Reason: Shortness Of Breath Metoprolol XL (24 HR) Succ [Toprol Xl] 150 mg PO DAILY #90 tab.er.24h Home Medications: Alendronate Sodium [Fosamax] 70 mg PO QWEEK 05/25/17 [History] Calcitriol [Rocaltrol] 0.25 mcg PO MOWEFR 05/25/17 [History] Folic Acid 1 mg PO DAILY 05/25/17 [History] Furosemide [Lasix] 40 mg PO DAILY 05/25/17 [History] Gabapentin [Neurontin] 100 mg PO DAILY 05/25/17 [History] GlipiZIDE [Glipizide ER] 10 mg PO DAILY 05/25/17 [History] Ketoconazole 2% CRM [Nizoral Cream] 1 appl TP BID 05/25/17 [History] Lansoprazole [Prevacid] 30 mg PO DAILY 05/25/17 [History] Levothyroxine Sodium [Levo-T] 25 mcg PO DAILY 05/25/17 [History] Losartan Potassium [Cozaar] 100 mg PO DAILY 05/25/17 [History] Potassium Chloride [Klor-Con 10] 10 meq PO DAILY 05/25/17 [History] Simvastatin [Zocor] 40 mg PO HS 05/25/17 [History] Sitagliptin Phosphate [Januvia] 50 mg PO DAILY 05/25/17 [History] Albuterol Sulfate [Albuterol Inhaler] 2 puff IH Q4HR PRN #1 inh 05/27/17 [Rx] Metoprolol XL (24 HR) Succ [Toprol Xl] 150 mg PO DAILY #90 tab.er.24h 05/27/17 [ Rx] Allergies/Adverse Reactions: 3 Allergy/AdvReac Type Severity Reaction Status Date / Time allopurinol AdvReac Diarrhea Verified 05/25/17 13:55 rivaroxaban [From Xarelto] AdvReac Gastrointestinal Verified 05/25/17 13:55 Upset Certification: Further, I certify that my clinical findings support that this patient is homebound (i.e. absences from home require considerable and taxing effort and are for medical reasons or anabaptism services or infrequently or short duration when for other reasons) because: Homebound Reason: Patient requires assistance of a person or device to safely leave home Attestation: My signature below is to certify that this patient is under my care and that I, or nurse practitioner, or a physician's physician assistant primary care working with me, has a face-to -face encounter with this patient.
[2017-05-28] MEDS ORDERED: *HR* Warfarin 2.5 MG TABLET PO ONE (18:00)
[2017-05-28] MEDS ORDERED: Gabapentin 100 MG CAPSULE PO SCH (21:00)
== END 2017-05-28 13:36 | disposition home or self-care (01) ==
LOC: 2ANU 13:50 → EMEROO 13:50 → 2ANU 19:37
PROVIDERS: ADMIT Internal Medicine; ATTEND Internal Medicine